=== PATIENT | female | born 1985 | race Caucasian/White ===

== ENCOUNTER → 2017-05-17 | Outpatient (CLI) | payer OTHER ==
[~2017-05-17] MED LIST: CITA10TA4 PO; EPP3/2 IM; LANS15CA6 PO; RANI300T2 PO
[2017-05-20 12:42] LABS: HERPES SIMPLEX CULT SOURCE GENITAL-VULVAR; HERPES SIMPLEX VIRUS CULT NOT ISOLATED (NOT ISOLATED)
== END | disposition home or self-care (01) ==
LOC: C.LABSPEC 14:00
PROVIDERS: ATTEND Obstetrics & Gynecology
DX: N76.0 Acute vaginitis (principal); N76.6 Ulceration of vulva

== ENCOUNTER → 2017-06-16 | Outpatient (CLI) | payer OTHER | END | disposition home or self-care (01) | LOC: C.PAPS 13:35 | PROVIDERS: ATTEND Obstetrics & Gynecology | DX: D06.9 Carcinoma in situ of cervix, unspecified (principal); Z11.51 Encounter for screening for human papillomavirus (HPV) ==

== ENCOUNTER → 2017-11-08 | Emergency (ER) | payer OTHER ==
[~2017-11-08] VITALS: Ht 166.4 cm; Wt 62.8 kg
[~2017-11-08] MED LIST changes: +DiphenhydrAMINE HCL 50 MG/ML VIAL IV STA; +KETOROLAC TROMETHAMINE 30 MG/ML VIAL IV STA; +OPTIRAY 320 IV PRN; +PROCHLORPERAZINE 5 MG/ML 2 ML VIAL IV STA; +SODIUM CHLORIDE 0.9% 1000ML 1,000 ML IV STA
[2017-11-08 00:18] VITALS: TEMP 36.8; Ht 166.4 cm; Wt 62.8 kg
[2017-11-08 02:05] LABS: ALBUMIN 3.7 gm/dl (3.4-5.0); CALCIUM 8.5 mg/dl (8.5-10.1); CREATININE 0.62 mg/dl (0.60-1.20); POTASSIUM 3.4 mmol/L (3.5-5.1)
[2017-11-08 02:08] LABS: TOTAL PROTEIN 7.1 gm/dl (6.4-8.2)
[2017-11-08 02:13] LABS: BASO % 0.3 %; BASO ABS # 0.01 K/uL (0-0.2); EOS % 0.8 %; EOS ABS # 0.03 K/uL (0-0.5); HEMATOCRIT 38.8 % (37-47); HEMOGLOBIN 13.3 g/dL (12.0-16.0); IG# 0.01 K/uL (0.00-0.02); LYMPH % 41.3 %; LYMPH ABS # 1.59 K/uL (1.2-3.4); MEAN CELL VOLUME 88.2 fL (80-100); MEAN CORPUSCULAR HEMOGLOBIN 30.2 pg (25-34); MEAN CORPUSCULAR HGB CONC 34.3 g/dl (32-36); MEAN PLATELET VOLUME 10.5 fL (7.4-10.4); MONO % 9.6 %; MONO ABS # 0.37 K/uL (0.11-0.59); NEUT % 47.7 %; NEUT ABS # 1.84 K/uL (1.4-6.5); PLATELET COUNT 171 K/uL (130-400); RED CELL DISTRIBUTION WIDTH CV 12.7 % (11.5-14.5); WHITE BLOOD COUNT 3.85 K/uL (4.8-10.8)
--- NOTE | 2017-11-08 04:34 | EMERGENCY ROOM VISIT NOTE ---
History Report prepared by Dougieibkasie: Claude Berry Under the Supervision of: Dr. Brittney Figueroa D.O. First contact with patient: 00:48 Chief Complaint: HEADACHE Stated Complaint: SEVERE HEADACHE,ESPECIALLY WHEN MOVE,RT SIDE L EYE History of Present Illness The patient is a 31 year old female who presents to the Emergency Room with complaints of waxing and waning headache beginning three days ago. The patient localizes the pain to her right forehead and behind her right eye. She has a history of headaches, but states that her pain feels different. She describes her pain as "throbbing and pounding". The patient feels that her heart beat becomes prominent in her head during her pain. Her pain is worsened with movement and positional changes. She feels that her lack of movement since arriving in the ED has improved her symptoms for the moment. The patient also complains of right lower neck "soreness" and nausea. She has taken Tylenol, which normally helps her headaches, but has seen no relief. She drank green tea today for the caffeine, and does not normally consume caffeine, but saw minimal relief. The patient denies visual changes, numbness, tingling, or vomiting. She notes that she is prone to dehydration, but has been drinking a lot of fluids recently. She has been seen for her "normal" headaches and was told that they may be migraines, but was not formally diagnosed. The patient has a family history of migraines. She has had a brain CTA two years ago which was normal. She denies recent changes to her medications, diet, or activity. Source of History: patient Onset: Three days ago Position: head (right side) Quality: other ("throbbing and pounding") Timing: waxes/wanes Modifying Factors (Worsening): movement, other (positional changes) Associated Symptoms: + neck pain ("soreness"), + nausea, No vomiting, No numbness Note: The patient denies visual changes or tingling. Review of Systems See HPI for pertinent positives & negatives. A total of 10 systems reviewed and were otherwise negative. Past Medical & Surgical Medical Problems: (1) Anxiety (2) Depression (3) GERD (gastroesophageal reflux disease) Surgical Problems: (1) Lipoma removed Family History Cancer Diabetes mellitus FHx: lung disease Hypertension Social History Smoking Status: Never Smoker Alcohol Use: none Drug Use: none Marital Status: single Housing Status: lives with family Occupation Status: employed Current/Historical Medications Scheduled Citalopram Hydrobromide (Citalopram Hydrobromide), 10 MG PO HS Lansoprazole (Prevacid), 15 MG PO QAM Scheduled PRN Epinephrine (Epipen), 0.3 MG IM UD PRN for ALLERGIC REACTION Ranitidine (Zantac), 300 MG PO DAILY PRN for Indigestion Allergies Coded Allergies: Doxycycline (Verified Allergy, Mild, GI UPSET, 11/08/17) Epinephrine (Verified Allergy, Unknown, "HEART RACES", 11/08/17) WITH LOCAL NUMBING MEDICATION Lidocaine (Verified Allergy, Unknown, "HEART RACES", 11/08/17) WITH LOCAL NUMBING MEDICATION Penicillins (Verified Allergy, Unknown, RED, HOT PATCHES ON SKIN, 06/23/16) Sulfamethoxazole w/Trimethoprim (Verified Allergy, Unknown, "SKIN FELT ON FIRE" AND HIVES, 11/08/17) Physical Exam Vital Signs Date Time Temp Pulse Resp B/P (MAP) Pulse Ox O2 Delivery O2 Flow Rate FiO2 11/08/17 04:58 73 20 114/68 98 11/08/17 04:29 69 16 113/70 100 Room Air 11/08/17 02:29 74 18 118/76 98 Room Air 11/08/17 00:18 36.8 82 20 141/89 99 Room Air Physical Exam GENERAL: alert, well appearing, well nourished, no distress, non-toxic EYE EXAM: normal conjunctiva, PERRL and EOM's grossly intact OROPHARYNX: no exudate, no erythema, lips, buccal mucosa, and tongue normal and mucous membranes are moist NECK: supple, no nuchal rigidity, no adenopathy. Mild tenderness in the right trapezius. No midline tenderness or step off. Full ROM. LUNGS: Clear to auscultation. Normal chest wall mechanics HEART: no murmurs, S1 normal and S2 normal ABDOMEN: abdomen soft, non-tender, normo-active bowel sounds, no masses, no rebound or guarding. BACK: Back is symmetrical on inspection and there is no deformity, no midline tenderness, no CVA tenderness. SKIN: no rashes and no bruising UPPER EXTREMITIES: upper extremities are grossly normal. LOWER EXTREMITIES: No pitting edema. NEURO EXAM: Normal sensorium, cranial nerves II-XII grossly intact, normal speech, no gross weakness of arms, no gross weakness of legs. Medical Decision & Procedures ER Provider Diagnostic Interpretation: CT results per statrad and my review. CT HEAD: Comparison: 03/05/2016. Stable and negative head CT. No acute intracranial abnormalities. No acute intracranial hemorrhage, transcortical infarction or mass. No acute fractures. Visualized paranasal sinuses and mastoids are clear. CTA HEAD: Comparison: 03/05/2016. Stable and negative CTA head. No acute occlusions, cerebral aneurysms or AVMs. Anterior circulation RT ICA: patent RT MCA: patent; no aneurysm RT NEIDA: patent A-comm art: patent; no aneurysm LT ICA: patent LT MCA : patent; no aneurysm LT NEIDA: patent Posterior circulation RT vert: patent LT vert: patent Basilar art: patent RT [employer]: patent RT P-comm: patent; no aneurysm LT [employer]ATOR: patent LT P-comm: patent; no aneurysm Major dural venous sinus are patent. Laboratory Results 11/08/17 01:30 Red Blood Count 4.40, Mean Corpuscular Volume 88.2, Mean Corpuscular Hemoglobin 30.2, Mean Corpuscular Hemoglobin Concent 34.3, Mean Platelet Volume 10.5, Neutrophils (%) (Auto) 47.7, Lymphocytes (%) (Auto) 41.3, Monocytes (%) (Auto) 9.6, Eosinophils (%) (Auto) 0.8, Basophils (%) (Auto) 0.3, Neutrophils # (Auto) 1.84, Lymphocytes # (Auto) 1.59, Monocytes # (Auto) 0.37, Eosinophils # (Auto) 0.03, Basophils # (Auto) 0.01 11/08/17 01:30 Test 11/08/17 01:30 White Blood Count 3.85 K/uL (4.8-10.8) Red Blood Count 4.40 M/uL (4.2-5.4) Hemoglobin 13.3 g/dL (12.0-16.0) Hematocrit 38.8 % (37-47) Mean Corpuscular Volume 88.2 fL (80-100) Mean Corpuscular Hemoglobin 30.2 pg (25-34) Mean Corpuscular Hemoglobin Concent 34.3 g/dl (32-36) Platelet Count 171 K/uL (130-400) Mean Platelet Volume 10.5 fL (7.4-10.4) Neutrophils (%) (Auto) 47.7 % Lymphocytes (%) (Auto) 41.3 % Monocytes (%) (Auto) 9.6 % Eosinophils (%) (Auto) 0.8 % Basophils (%) (Auto) 0.3 % Neutrophils # (Auto) 1.84 K/uL (1.4-6.5) Lymphocytes # (Auto) 1.59 K/uL (1.2-3.4) Monocytes # (Auto) 0.37 K/uL (0.11-0.59) Eosinophils # (Auto) 0.03 K/uL (0-0.5) Basophils # (Auto) 0.01 K/uL (0-0.2) RDW Standard Deviation 41.0 fL (36.4-46.3) RDW Coefficient of Variation 12.7 % (11.5-14.5) Immature Granulocyte % (Auto) 0.3 % Immature Granulocyte # (Auto) 0.01 K/uL (0.00-0.02) Anion Gap 6.0 mmol/L (3-11) Est Creatinine Clear Calc Drug Dose 119.6 ml/min Estimated GFR () 138.3 Estimated GFR (Non- 119.3 BUN/Creatinine Ratio 14.2 (10-20) Calcium Level 8.5 mg/dl (8.5-10.1) Magnesium Level 2.0 mg/dl (1.8-2.4) Total Bilirubin 0.7 mg/dl (0.2-1) Aspartate Amino Transf (AST/SGOT) 15 U/L (15-37) Alanine Aminotransferase (ALT/SGPT) 24 U/L (12-78) Alkaline Phosphatase 41 U/L (45-117) Total Protein 7.1 gm/dl (6.4-8.2) Albumin 3.7 gm/dl (3.4-5.0) Globulin 3.4 gm/dl (2.5-4.0) Albumin/Globulin Ratio 1.1 (0.9-2) Human Chorionic Gonadotropin, Qual NEG (NEG) Laboratory results per my review. Medications Administered Medications (Trade) Dose Ordered Sig/Girish Route Start Time Stop Time Status Last Admin Dose Admin Sodium Chloride 1,000 ml @ 999 mls/hr Q1H1M STAT IV 11/08/17 01:19 2/5/18 02:19 DC 11/08/17 01:41 999 MLS/HR Ketorolac Tromethamine (Toradol Inj) 15 mg NOW STAT IV 11/08/17 04:18 11/08/17 04:20 DC 11/08/17 04:27 15 MG Prochlorperazine Edisylate (Compazine Inj) 5 mg NOW STAT IV 11/08/17 04:18 11/08/17 04:20 DC 11/08/17 04:29 5 MG Diphenhydramine HCl (Benadryl Inj) 12.5 mg NOW STAT IV 11/08/17 04:18 11/08/17 04:20 DC 11/08/17 04:28 12.5 MG ED Course 0105: The patient was evaluated in room A11B. A complete history and physical exam was performed. 0415: I reassessed the patient. Her pain is a 5/10 currently. I updated her on her test results. 0435: Upon reevaluation, the patient is feeling better. I discussed the findings and the treatment plan with the patient. She verbalizes agreement and understanding. She was discharged home. Medical Decision Differential diagnosis: Etiologies such as migraine headache, meningitis, sinusitis, CO exposure, ICH, SAH, infection, tumor, headache, sinus thrombosis, arterial dissection, as well as others were entertained. Patient improved here, labs and imaging reassuring, vital signs stable throughout. Did not feel patient warranted LP for underlying subarachnoid hemorrhage. Doubt other vascular etiology or infectious etiology. Doubt hypertensive urgency/emergency. Doubt pseudotumor cerebri/NPH. Discussed with patient follow-up with family doctor given atypical nature of headache, symptoms to watch and return for, she verbalized understanding was agreeable with plan. Doubt other environmental exposures or etiology. Patient slightly anxious appearing at baseline. Medication Reconcilliation Current Medication List: was personally reviewed by me Blood Pressure Screening Patient's blood pressure: Normal blood pressure Blood pressure disposition: Did not require urgent referral Impression Primary Impression: Headache Scribe Attestation The scribe's documentation has been prepared under my direction and personally reviewed by me in its entirety. I confirm that the note above accurately reflects all work, treatment, procedures, and medical decision making performed by me. Departure Information Dispostion Home / Self-Care Referrals Summer Forbes D.O. (PCP) Patient Instructions My [facility] Additional Instructions Please call and follow-up with your family doctor as a precaution. Please drink plenty of fluids to stay well hydrated. If you have any worsening symptoms including increased headache, vision changes, dizziness, nausea/ vomiting, fevers, are unable to walk, worsening neck or back pain, numbness/ tingling, or you have any other concerns, please return to the emergency room. Problem Qualifiers Primary Impression: Headache Headache type: unspecified Headache chronicity pattern: acute headache Intractability: not intractable Qualified Codes: R51 - Headache
[2017-11-08 04:58] VITALS: BP 114/68; PULSE 73; O2SAT 98
--- NOTE | 2017-11-08 07:13 | DIAGNOSTIC IMAGING REPORT ---
ANGIOGRAPHY HEAD COMBO CLINICAL HISTORY: 31 years-old Female with atypical headache, neck pain, paresthesias. Acute atypical headache COMPARISON STUDY: CTA of the head 03/05/2016 TECHNIQUE: Unenhanced axial CT scan of the brain is performed. Subsequently, following the IV administration of 1:15 cc of Optiray 320, CT angiogram of the brain was performed from the skull base to the vertex. Images are reviewed in the axial, sagittal, and coronal planes. 3-D MIPS images are created and assessed. IV contrast was administered without complication. A dose lowering technique was utilized adhering to the principles of ALARA. CT DOSE: 654.54 mGy.cm FINDINGS: CT BRAIN: There is no acute intracranial hemorrhage, midline shift, hydrocephalus, intracranial mass, territorial ischemia or abnormal extra-axial collections. No abnormal intra-axial or extra-axial enhancement. Mastoid air cells and middle ear cavities are clear. No calvarial fracture. Paranasal sinuses are clear. CT ANGIOGRAM OF THE BRAIN: The imaged bilateral internal carotid arteries are patent. The bilateral anterior and middle cerebral arteries are also patent. The vertebrobasilar system and posterior cerebral arteries are widely patent. There is no aneurysm, high-grade stenosis, or proximal branch occlusion identified. Dural sinuses appear patent. IMPRESSION: 1. No acute intracranial abnormality. 2. Unremarkable CTA of the head without aneurysm, dissection, high-grade stenosis or proximal branch occlusion. The above report was generated using voice recognition software. It may contain grammatical, syntax or spelling errors. Electronically signed by: Ruiz Colmenares M.D. 11/08/2017 7:12 AM Dictated Date/Time: 11/08/2017 7:06 AM
== END | disposition home or self-care (01) ==
LOC: C.EDB 00:18
DX: R51 Headache (principal); F41.9 Anxiety disorder, unspecified; F32.9 Major depressive disorder, single episode, unspecified; K21.9 Gastro-esophageal reflux disease without esophagitis; Z80.9 Family history of malignant neoplasm, unspecified; Z83.3 Family history of diabetes mellitus; Z82.49 Family history of ischemic heart disease and other diseases of the circulatory system; Z84.1 Family history of disorders of kidney and ureter; Z79.899 Other long term (current) drug therapy

== ENCOUNTER 2025-08-25 08:52 | Observation (INO) ==
--- NOTE | 2025-08-25 09:11 | Emergency Department Note ---
History of Present Illness General Chief Complaint: Chest Pain Stated Complaint: CHEST PAIN Time Seen by Provider: 08/25/25 08:59 History of Present Illness Provider Complaint: chest pain Onset (ago): day(s) 3 Duration: intermittent Onset: during rest Pain Location: left chest Pain Radiation: LUE and neck Severity: moderate Maximum Pain Intensity: 7 Current Pain Intensity: 7 Quality: + heaviness and + sharp Relieved By: + nothing Exacerbated By: + nothing Context: no recent illness, no recent surgery, no recent immobilization, no recent travel, no trauma/injury, no new medications or no history of DVT/PE Associated symptoms: + dyspnea; no nausea, no vomiting, no palpitations, no fever, no cough or no leg swelling Home Medications Medication Instructions Recorded Confirmed Type famotidine 20 mg tablet (Pepcid AC) 20 mg PO BID PRN Acid Reflux 03/31/23 08/25/25 History polyethylene glycol 3350 17 17 g PO DAILY PRN Constipation 03/31/23 08/25/25 History gram/dose oral powder (Miralax) meclizine 25 mg tablet 25 mg PO DAILY PRN Vertigo 07/02/23 08/25/25 History naproxen sodium 220 mg tablet 220 mg PO BID PRN Migraine Headache 11/19/23 08/25/25 History (Aleve) acetaminophen 325 mg tablet 325 mg PO Q6 PRN Pain 11/22/23 08/25/25 History (Tylenol) naratriptan 2.5 mg tablet 2.5 mg PO DIRECTED PRN Migraine 01/05/24 08/25/25 History Headache tizanidine 4 mg tablet 4 mg PO HS PRN Migraine Headache 01/05/24 08/25/25 History valacyclovir 1 gram tablet 1,000 mg PO BID PRN sores #10 tabs 06/01/25 08/25/25 Rx (Valtrex) pantoprazole 40 mg tablet,delayed 40 mg PO QAM 08/25/25 08/25/25 History release propranolol 10 mg tablet 0 mg PO UD PRN Chest Pain 08/25/25 08/25/25 History Allergies Allergy/AdvReac Type Severity Reaction Status Date / Time Penicillins Allergy Intermediate RED, HOT Verified 08/25/25 10:40 PATCHES ON SKIN sulfamethoxazole Allergy Intermediate "SKIN FELT Verified 08/25/25 10:40 ON FIRE" AND HIVES trimethoprim Allergy Intermediate "SKIN FELT Verified 08/25/25 10:40 ON FIRE" AND HIVES azithromycin AdvReac Intermediate gastro Unverified 08/25/25 10:40 upset, body/muscle aches doxycycline AdvReac Intermediate GI UPSET Verified 08/25/25 10:40 epinephrine AdvReac Intermediate "HEART Verified 08/25/25 10:40 RACES" lidocaine AdvReac Intermediate "HEART Verified 08/25/25 10:40 RACES" Past Med/Surg History Problem List (Updated 08/25/25 @ 11:46 by Sundeep Walton MD) Leukopenia (Acute) Chest pain (Acute) Breast pain, left Postoperative state 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 per med list, pt on meclizine for hx of dizziness IBS (irritable bowel syndrome) follows with GI Low blood pressure occas and was told to increase salt intake at that time. 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 S/P LEEP (loop electrosurgical excision procedure) 05/19/2016 for CIN3 on colpo biopsy Lipoma removed in 2002, 2008, 2020 Family History Grandmother (Paternal) Uterine cancer Cancer Grandmother (Maternal) Breast cancer Cancer Grandmother Stroke Heart disease Father Doyle syndrome Diagnosed 2020, Blanca being tested Hypertension Grandfather (Maternal) Cancer Grandfather (Maternal) Cancer Uncle Hypertension Denies family history of Ovarian cancer Colorectal cancer Social History Smoking Status: Never smoker Second Hand Exposure: No; Do You Dip or Chew Tobacco: No; Hx Alcohol Use: No Hx Substance Use: No Preferred Language: Yi Communication Ability: Effective Mosaic Floor Layer Required: No Beliefs That Will Affect Care: None marital status: Single Current Living Situation: Family Current Living Situation Comment: lives w/ son current occupational status: unemployed How many Children do You have: 2 Feels Safe at Home: Yes during the past year weight has: increased > 10 lbs Assistive Devices: Glasses Physical Exam Vital Signs Vital Signs - 24 hr 08/25/25 08:55 08/25/25 09:11 08/25/25 09:16 Temperature 36.5 C Temperature Source Temporal Artery Scan Pulse Rate 106 H 78 Pulse Rhythm Respiratory Rate 18 21 Respiratory Effort / Characteristics Non-Labored Spontaneous Respiratory Depth Normal Respiratory Pattern Regular Blood Pressure 132/83 115/70 Blood Pressure Mean 99 78 Blood Pressure Position Sitting Pulse Oximetry 98 100 100 Oxygen Delivery Method Room Air Room Air Room Air Oxygen Flow Rate 0 Sepsis Recent Fever Within 48 Hours No Sepsis New/Unexplained Change in Mental Status N/A Sepsis Action Taken by Nursing No Action Required 08/25/25 09:17 08/25/25 09:18 08/25/25 09:30 Temperature Temperature Source Pulse Rate 66 70 81 Pulse Rhythm Regular Respiratory Rate 16 19 Respiratory Effort / Characteristics Respiratory Depth Respiratory Pattern Blood Pressure 118/63 Blood Pressure Mean 85 Blood Pressure Position Pulse Oximetry 100 99 Oxygen Delivery Method Room Air Room Air Oxygen Flow Rate Sepsis Recent Fever Within 48 Hours Sepsis New/Unexplained Change in Mental Status Sepsis Action Taken by Nursing 08/25/25 10:00 08/25/25 10:30 08/25/25 11:00 Temperature Temperature Source Pulse Rate 66 69 67 Pulse Rhythm Respiratory Rate 15 14 15 Respiratory Effort / Characteristics Respiratory Depth Respiratory Pattern Blood Pressure 102/58 L 107/61 140/83 Blood Pressure Mean 73 81 109 Blood Pressure Position Pulse Oximetry 100 99 100 Oxygen Delivery Method Room Air Room Air Room Air Oxygen Flow Rate Sepsis Recent Fever Within 48 Hours Sepsis New/Unexplained Change in Mental Status Sepsis Action Taken by Nursing Physical Exam GENERAL: oriented to person, place, and time. appears well-developed and well- nourished. HENT: Exam performed. - Head: Normocephalic and atraumatic. EYES: Conjunctivae and EOM are normal. Right eye exhibits no discharge. Left eye exhibits no discharge. No scleral icterus. Mild exophthalmos. NECK: Normal range of motion. Neck supple. No JVD present. CV: Normal rate, regular rhythm, normal heart sounds and intact distal pulses. There is no peripheral edema. Palpable radial pulses bue. PULM/CHEST: Effort normal and breath sounds normal. No respiratory distress. No stridor. no wheezes. no rales. ABD: The abdomen is soft. There is no tenderness. NEURO: Motor and sensation grossly intact. SKIN: Skin is warm and dry. He is not diaphoretic. PSYCH: normal mood and affect. Behavior is normal. Judgment and thought content normal. Course Course 0859: The patient was evaluated in room B4. A complete history and physical exam was performed Cardiac monitoring: An order was placed for continuous cardiac monitoring. The monitor shows a rate of 90 with sinus rhythm interpreted by me 1029: Vital signs stable. Labs and imaging are unremarkable. Patient be admitted for chest pain rule out ACS. [facility] hospitalist team contacted. Administered Medications Discontinued Medications Aspirin (Aspirin Chew 324 Mg) 324 mg PO NOW STA Stop: 08/25/25 09:10 Last Admin: 08/25/25 09:13 Dose: 324 mg Documented By: MAXX Medical Decision Making Laboratory Data Attestation: I reviewed the patient's lab results. 08/25/25 09:12 08/25/25 09:12 Labs: Lab Results 08/25/25 Range/Units 09:12 WBC 5.38 (4.8-10.8) K/ul RBC 4.73 (4.20-5.40) M/uL Hgb 14.6 (12.0-16.0) g/dL Hct 42.1 (37.0-47.0) % MCV 89.0 (80.0-100.0) fL MCH 30.9 (25.0-34.0) pg MCHC 34.7 (32.0-36.0) g/dL RDW Std Deviation 39.6 (36.4-46.3) fL RDW Coeff of Varinder 12.1 (11.5-14.5) % Plt Count 168 (130-400) K/uL MPV 10.7 (9.4-12.4) fL Immature Gran % (Auto) 0.2 % Neut % (Auto) 70.6 % Lymph % (Auto) 22.9 % Hopkins % (Auto) 4.8 % Eos % (Auto) 1.1 % Baso % (Auto) 0.4 % Neut # (Auto) 3.80 (1.40-6.50) K/uL Lymph # (Auto) 1.23 (1.20-3.40) K/uL Hopkins # (Auto) 0.26 (0.11-0.59) K/uL Eos # (Auto) 0.06 (0.00-0.50) K/uL Baso # (Auto) 0.02 (0.00-0.20) K/uL Immature Gran # (Auto) 0.01 (0.01-0.20) K/uL PT 11.0 (9.0-12.0) Seconds INR 1.0 (0.9-1.1) APTT 30 (21-31) Seconds PTT Ratio 1.1 Sodium 136 (136-145) mmol/L Potassium 3.8 (3.5-5.1) mmol/L Chloride 103 (98-107) mmol/L Carbon Dioxide 23 (21-32) mmol/L Anion Gap 10 (3-11) BUN 14 (6-23) mg/dl Creatinine 0.80 (0.6-1.2) mg/dl Est Cr Clr Drug Dosing 84.1 ml/min eGFR 95.46 BUN/Creatinine Ratio 17.5 (10-20) Glucose 77 (70-99(Fasting)) mg/dl Calcium 9.0 (8.6-10.3) mg/dl Troponin I High Sens 4.3 (0-14) pg/ml Lipase 19 (11-82) U/L Imaging Data Chest x-ray: Attestation: I personally reviewed and interpreted this imaging study as follows: My impression: Chest x-ray negative. Airway clear. No pneumothorax. No consolidation. No cardiomegaly or cephalization.. No free air under the diaphragm. No fractures of the skeletal structures. Radiologist's impression: Chest X-Ray 08/25/25 09:09 Technique: A frontal view of the chest was obtained Findings: There are no confluent pulmonary infiltrates. The heart size is within normal limits. No pleural effusion or pneumothorax is seen. There is no definite pulmonary nodule. No fracture is noted. No foreign body is seen Impression: No active disease Electronically signed by Victor M Lin 08-25-2025 09:54 AM ECG Data Attestation: I personally reviewed and interpreted this ECG as follows: Rate (beats per minute): 94 Rhythm: normal sinus Findings: no ST depression, no ST elevation or no prolonged QT Additional Comments: QRS 68 MDM Narrative 0859: The patient was evaluated in room B4. A complete history and physical exam was performed Cardiac monitoring: An order was placed for continuous cardiac monitoring. The monitor shows a rate of 90 with sinus rhythm interpreted by me 1029: Vital signs stable. Labs and imaging are unremarkable. Patient be admitted for chest pain rule out [facility] Impression & Plan Chest pain Discharge Plan Visit Data Chief Complaint: Chest Pain Stated Complaint: CHEST PAIN ED Provider: Sundeep Walton Discharge Problem: Chest pain Patient Disposition: Being Evaluated by Hospitalist Condition: Fair Forms Stand Alone Forms: [facility] Prescriptions Prescriptions: No Action valacyclovir [Valtrex] 1 gram tablet 1,000 mg PO BID PRN (Reason: sores) Qty: 10 3RF meclizine 25 mg Tablet 25 mg PO DAILY PRN (Reason: Vertigo) naproxen sodium [Aleve] 220 mg Tablet 220 mg PO BID PRN (Reason: Migraine Headache) acetaminophen [Tylenol] 325 mg Tablet 325 mg PO Q6 PRN (Reason: Pain) famotidine [Pepcid AC] 20 mg Tablet 20 mg PO BID PRN (Reason: Acid Reflux) Patient Comments: 08/24-per pt she's been taking BID instead of just nightly polyethylene glycol 3350 [Miralax] 17 gram/dose Powder 17 g PO DAILY PRN (Reason: Constipation) tizanidine 4 mg tablet 4 mg PO HS PRN (Reason: Migraine Headache) naratriptan 2.5 mg tablet 2.5 mg PO DIRECTED PRN (Reason: Migraine Headache) propranolol 10 mg tablet 0 mg PO UD PRN (Reason: Chest Pain) Patient Comments: 08/25-per pt she hasnt started the medication yet pantoprazole 40 mg tablet,delayed release (DR/EC) 40 mg PO QAM Referrals Referrals: Summer Forbes DO [Primary Care Provider] - Discharge Problem: Chest pain Qualifiers: Chest pain type: unspecified Qualified Code(s): R07.9 - Chest pain, unspecified
[2025-08-25] MEDS: ASPIRIN CHEW 324 MG PO STA (09:13)
[2025-08-25 09:23] LABS: Hematocrit (blood only) 42.1 % (37.0-47.0); Hemoglobin 14.6 g/dL (12.0-16.0); Immature Granulocytes # (auto) 0.01 K/uL (0.01-0.20); Immature Granulocytes % (auto) 0.2 %; Mean Corpuscular Hemoglobin 30.9 pg (25.0-34.0); Mean Corpuscular Volume 89.0 fL (80.0-100.0); Platelet Count 168 K/uL (130-400); RDW Standard Deviation 39.6 fL (36.4-46.3); Red Blood Count 4.73 M/uL (4.20-5.40); White Blood Count 5.38 K/ul (4.8-10.8)
[2025-08-25 09:42] LABS: Anion Gap 10.0 (3-11); Blood Urea Nitrogen 14.0 mg/dl (6-23); Calcium 9.0 mg/dl (8.6-10.3); Carbon Dioxide 23.0 mmol/L (21-32); Chloride 103.0 mmol/L (98-107); Creatinine Clr Calc Pharmacy 84.1 ml/min; Glucose 77.0 mg/dl (70-99(Fasting)); Lipase 19.0 U/L (11-82); Potassium 3.8 mmol/L (3.5-5.1); Sodium 136.0 mmol/L (136-145)
--- NOTE | 2025-08-25 09:54 | XRay Report ---
Technique: A frontal view of the chest was obtained Findings: There are no confluent pulmonary infiltrates. The heart size is within normal limits. No pleural effusion or pneumothorax is seen. There is no definite pulmonary nodule. No fracture is noted. No foreign body is seen Impression: No active disease Electronically signed by Victor M Lin 08-25-2025 09:54 AM
[2025-08-25 09:56] LABS: INR 1.0 (0.9-1.1); Partial Thromboplastin Time 30 Seconds (21-31); Prothrombin Time 11.0 Seconds (9.0-12.0)
--- NOTE | 2025-08-25 11:27 | History & Physical Report ---
Date of Service August 25, 2025 Assessment & Plan (1) Chest pain: Plan: Off-and-on chest pain/pressure worse for the last 3 days. As for a few minute and associated with shortness of breath and radiation to the neck and left upper extremity Has had episodes of pain few weeks back as well Chest pain could be secondary to costochondritis Initial EKG and troponin are unremarkable Will admit to med/tele and will rule out with serial cardiac enzymes and also ec ho will be done Ideally would be to get her stress test but whenever possible over the weekend If she is ruled out and no other arrhythmias noted she will be discharged likely tomorrow with cardiology follow-up sooner than later (2) PMS (premenstrual syndrome): (3) Palpitations: Plan: Complaint palpitations and that is positional especially lying on the left side Recent Zio patch of 12 days did not show any significant arrhythmias as per the patient Will monitor the patient in the hospital for any arrhythmias Recently given propranolol 10 mg but has not used it for palpitation (4) GERD (gastroesophageal reflux disease): Plan: History of GERD and has been on Protonix and Pepcid Does not have any epigastric tenderness and no nausea or vomiting at this time will continue current medications (5) Classic migraine with aura: Plan: Has been medications as needed (6) Cecilio-Danlos disease: (7) Anxiety: Plan: Recently given diazepam as needed but has not used it DVT prophylaxis SCDs and activities CODE STATUS Full History of Present Illness Chief Complaint: Chest pain for the last 3 days with occasional palpitation Primary Care Provider: Summer Forbes DO She is a 39-year-old female with significant past medical history of Cecilio- Danlos syndrome type III, gastroesophageal reflux disease, hypothyroidism, TAYLOR, premenopausal symptom and atypical migraine apparently has been complaining of chest pain off and on with and without exertion for the last 3 days. She was in the ER on of this month with chest pain and also was seen in [place] ER with chest pain recently. She was sent home from the ER on 2 occasions. She has not had any echocardiogram done for the last 1 year. She has had a Zio patch as an outpatient for 12 days that did not show any significant arrhythmias but she was told that she might tachybradycardia syndrome by the PA. Her pain is very unpredictable and when it comes it lasts for a few minute sometimes radiation of pain to her jaw and also left shoulder and left upper extremity. Associated with palpitation but denies any significant dizziness or shortness of breath associated with it. For the last 3 days she has been more uncomfortable with the chest pain/pressure and she is brought into ER by her mom. Allergies Allergy/AdvReac Type Severity Reaction Status Date / Time Penicillins Allergy Intermediate RED, HOT Verified 08/25/25 10:40 PATCHES ON SKIN sulfamethoxazole Allergy Intermediate "SKIN FELT Verified 08/25/25 10:40 ON FIRE" AND HIVES trimethoprim Allergy Intermediate "SKIN FELT Verified 08/25/25 10:40 ON FIRE" AND HIVES azithromycin AdvReac Intermediate gastro Unverified 08/25/25 10:40 upset, body/muscle aches doxycycline AdvReac Intermediate GI UPSET Verified 08/25/25 10:40 epinephrine AdvReac Intermediate "HEART Verified 08/25/25 10:40 RACES" lidocaine AdvReac Intermediate "HEART Verified 08/25/25 10:40 RACES" Home Medications Medication Instructions Recorded Confirmed Type famotidine 20 mg tablet (Pepcid AC) 20 mg PO BID PRN Acid Reflux 03/31/23 08/25/25 History polyethylene glycol 3350 17 17 g PO DAILY PRN Constipation 03/31/23 08/25/25 History gram/dose oral powder (Miralax) meclizine 25 mg tablet 25 mg PO DAILY PRN Vertigo 07/02/23 08/25/25 History naproxen sodium 220 mg tablet 220 mg PO BID PRN Migraine Headache 11/19/23 08/25/25 History (Aleve) acetaminophen 325 mg tablet 325 mg PO Q6 PRN Pain 11/22/23 08/25/25 History (Tylenol) naratriptan 2.5 mg tablet 2.5 mg PO DIRECTED PRN Migraine 01/05/24 08/25/25 History Headache tizanidine 4 mg tablet 4 mg PO HS PRN Migraine Headache 01/05/24 08/25/25 History valacyclovir 1 gram tablet 1,000 mg PO BID PRN sores #10 tabs 06/01/25 08/25/25 Rx (Valtrex) pantoprazole 40 mg tablet,delayed 40 mg PO QAM 08/25/25 08/25/25 History release propranolol 10 mg tablet 0 mg PO UD PRN Chest Pain 08/25/25 08/25/25 History Past Med/Surg History Problem List Leukopenia (Acute) Chest pain (Acute) Breast pain, left Postoperative state 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 per med list, pt on meclizine for hx of dizziness IBS (irritable bowel syndrome) follows with GI Low blood pressure occas and was told to increase salt intake at that time. 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 S/P LEEP (loop electrosurgical excision procedure) 05/19/2016 for CIN3 on colpo biopsy Lipoma removed in 2002, 2008, 2020 Family History Grandmother (Paternal) Uterine cancer Cancer Grandmother (Maternal) Breast cancer Cancer Grandmother Stroke Heart disease Father Doyle syndrome Diagnosed 2020, Blanca being tested Hypertension Grandfather (Maternal) Cancer Grandfather (Maternal) Cancer Uncle Hypertension Denies family history of Ovarian cancer Colorectal cancer Social History Smoking Status: Never smoker Second Hand Exposure: No; Do You Dip or Chew Tobacco: No; Hx Alcohol Use: No Hx Substance Use: No Preferred Language: Uzbek Communication Ability: Effective 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 Beliefs That Will Affect Care: None marital status: Single Current Living Situation: Family Current Living Situation Comment: lives w/ son current occupational status: unemployed How many Children do You have: 2 Feels Safe at Home: Yes during the past year weight has: increased > 10 lbs Assistive Devices: Glasses Review of Systems Review of Systems: All systems reviewed and unremarkable except as noted below Physical Exam Physical Exam: Lying in bed without any acute distress but looks anxious Constitutional: + ill appearing and average body habitus Eyes: PERRL, conjunctivae normal, anicteric sclerae ENMT: external ear and nose normal, oropharynx normal Neck: trachea midline, no thyromegaly Respiratory: no respiratory distress Auscultation: lungs clear to auscultation bilaterally Cardiovascular: Rate/Rhythm: regular rate and regular rhythm; not tachycardic Heart Sounds: normal S1 and normal S2; no murmur Extremities: no edema Gastrointestinal (Abdomen): Inspection/Auscultation: normal bowel sounds; abdomen not distended Percussion/Palpation: abdomen soft; abdomen nontender Musculoskeletal: No acute arthritis involving any of the joint Neurologic: normal touch/pain/proprioception and moves all extremities; no focal motor deficits Psychiatric: A+Ox3, euthymic affect Lymphatic: no cervical or axillary lymphadenopathy Results & Data Results & Data Vital Signs (Past 12 Hours) Vital Signs Temp Pulse Resp BP Pulse Ox O2 Del Method O2 Flow Rate 08/25/25 10:00 66 15 102/58 L 100 Room Air 08/25/25 09:30 81 19 118/63 99 Room Air 08/25/25 09:18 70 08/25/25 09:17 66 16 100 Room Air 08/25/25 09:16 100 Room Air 0 08/25/25 09:11 78 21 115/70 100 Room Air 08/25/25 08:55 36.5 C 106 H 18 132/83 98 Room Air Laboratory Results Short CBC 08/25/25 Range/Units 09:12 WBC 5.38 (4.8-10.8) K/ul Hgb 14.6 (12.0-16.0) g/dL Hct 42.1 (37.0-47.0) % Plt Count 168 (130-400) K/uL BMP 08/25/25 09:12 Sodium 136 Potassium 3.8 Chloride 103 Carbon Dioxide 23 BUN 14 Creatinine 0.80 Glucose 77 Calcium 9.0 Code Status & VTE Plan VTE Prophylaxis Plan VTE Prophylaxis will be ordered: Yes (1) Chest pain Chest pain type: unspecified Qualified Code(s): R07.9 - Chest pain, unspecified
--- NOTE | 2025-08-25 13:27 | XCELERA ---
[id number]
[2025-08-25] MEDS ORDERED: MECLIZINE HCL 25 MG TAB PO PRN (14:59)
[2025-08-25] MEDS ORDERED: POLYETHYLENE (MIRALAX) 17 GM PACK PO PRN (14:59)
[2025-08-25] MEDS ORDERED: ACETAMINOPHEN 325 MG TAB PO PRN (14:59)
[2025-08-25] MEDS ORDERED: NAPROXEN 250 MG TAB PO PRN (15:08)
[2025-08-26] MEDS: FAMOTIDINE 20 MG TAB PO PRN (00:05)
[2025-08-26 04:12] VITALS: RESP 16
[2025-08-26 06:51] LABS: Anion Gap 6.0 (3-11); Blood Urea Nitrogen 12.0 mg/dl (6-23); Calcium 8.6 mg/dl (8.6-10.3); Carbon Dioxide 26.0 mmol/L (21-32); Chloride 105.0 mmol/L (98-107); Creatinine Clr Calc Pharmacy 97.5 ml/min; Glucose 88.0 mg/dl (70-99(Fasting)); Magnesium 2.0 mg/dl (1.7-2.4); Potassium 4.1 mmol/L (3.5-5.1); Sodium 137.0 mmol/L (136-145)
--- NOTE | 2025-08-26 10:54 | Cardiology Consultation ---
Date of Consultation August 26, 2025 Assessment & Plan (1) Palpitations: (2) Anxiety: (3) SVT (supraventricular tachycardia): Plan Patient is a 39 year old female with Cecilio-Danlos syndrome long history of palpitations and atypical chest pain. Recent outpatient cardiac evaluation with ZIO demonstrating NSR with rare PAT. Frequent symptoms correlated with NSR/Sinus tach. No arrhythmias. Due to significant anxiety/palpitations, propranolol 10 mg recommended as needed. Patient was hesitant to try but now agreeable Since admission - HS troponin negative x2. EKG without acute changes. Echo with normal LVEF, no wall motion abnormalities. Recommend trying low dose propranolol 10 mg - patient wishes to start 1/2 tab BID while on court recording monitor. She is very anxious. Treatment of underlying anxiety would also be recommended, and propranolol may aid this as well. Previously outpatient cardiac CT was discussed for further evaluation of chest pain. She has had past stress tests that are unrevealing. Given her chronic chest pain, multiple ER visits, would consider outpatient cardiac CT as previously discussed for definitive answers and r/o cardiac etiology. No further inpatient cardiac testing warranted at this time. Case discussed with Dr. Immanuel Brown spent a total of 60 of service in preparation, delivery, and documentation of the care provided to this patient, excluding any time spent in the performance of separately billed services. Catrina Howard PA-C Department of Cardiology, [facility] This chart was completed in part utilizing Speech Voice Recognition Software. Grammatical errors, random word insertions, pronoun errors, and incomplete sentences are an occasional consequence of this system due to software limitations, ambient noise, and hardware issues. Any formal questions or concerns about the content, text, or information contained within the body of this dictation should be directly addressed to the provider for clarification. Supervising Physician Co-Signing Physician Notes Patient seen and examined. Past medical history, surgical history, social history and family history have been reviewed. The medical record and all the above studies have been reviewed. Case DW BENJA including management. Patient has had sx of palpitations since after COVID. Patient has not had anything significant to eat or drink in the past few days worrying that she wou ld vomit. Palpitations Chest Pain - atypical, reproducible on palpation and movement as per patient; NC R/O Anxiety disorder PSVT Cecilio-Danlos disease ? Long COVID agree with trial of Propranolol ECHO - normal LVEF, no sig valvular abn f/u in cardiology clinic post discharge further cardiac w/u as OP as indicated please recall if needed will sign off History of Present Illness Reason for Consultation: CP; Palpitations Requesting Physician: Vera Hospitalist Attending Physician: Dr. Gambino History of Present Illness Patient is a 39 year old female who presented to [facility] with complaints of chest pain and palpitations. She has had similar ongoing complaints for many years with outpatient work ups including ZIO monitor and echo, and past stress tests. Most recent outpatient visit in Jul 2025 with cardiology and patient prescribed propranolol 10 mg as needed for palpitations and anxiety. She admits to not trying medication as she was fearful her HR would go too low. She reports frequent bouts of palpitations, and wide range of HR's in the 60's up to 130's wiht movement. She feels "deconditioned". She notes left sided chest "ache" at rest and with activity. Since admission, EKG demonstrated NSR. Telemetry revealed NSR and Sinus tachycardia when she is walking. No current chest pain. She had recent echo yesterday which revealed normal LVEF, normal wall motion, normal echo. Outpatient ZIO demonstrated NSR with multiple triggered events correlating to NSR and sinus tach outpatient cardiac CT also discussed due to chronic chest pain, but patient had declined initially At time of consult this morning, patient resting in bed feeling well. She feels anxious and that 'something is wrong". She admits to numbness in her neck/spine and is awaiting further imaging. No current chest pain or palpitations. She would be willing to try low dose propranolol as previously recommended while she is here. History includes: 1. Palpitations secondary to increased cardiac awareness and short salvos of SVT with aberrant conduction 2. History of atypical chest pain a. Negative treadmill stress echo 04/2022 3. Orthostatic hypotension 4. Borderline mitral valve prolapse without significant MR per echo 2021, mild mitral calcificaiton per echo in 2024 - no MR 5. Cecilio-Danlos syndrome type 3 (hypermobility syndrome)- no aortic dilation per CT 2019, stable per echo 04/2022, February 2025 6. Doyle syndrome Allergies Allergy/AdvReac Type Severity Reaction Status Date / Time Penicillins Allergy Intermediate RED, HOT Verified 08/25/25 10:40 PATCHES ON SKIN sulfamethoxazole Allergy Intermediate "SKIN FELT Verified 08/25/25 10:40 ON FIRE" AND HIVES trimethoprim Allergy Intermediate "SKIN FELT Verified 08/25/25 10:40 ON FIRE" AND HIVES azithromycin AdvReac Intermediate gastro Unverified 08/25/25 10:40 upset, body/muscle aches doxycycline AdvReac Intermediate GI UPSET Verified 08/25/25 10:40 epinephrine AdvReac Intermediate "HEART Verified 08/25/25 10:40 RACES" lidocaine AdvReac Intermediate "HEART Verified 08/25/25 10:40 RACES" Home Medications Medication Instructions Recorded Confirmed Type famotidine 20 mg tablet (Pepcid AC) 20 mg PO BID PRN Acid Reflux 03/31/23 08/25/25 History polyethylene glycol 3350 17 17 g PO DAILY PRN Constipation 03/31/23 08/25/25 History gram/dose oral powder (Miralax) meclizine 25 mg tablet 25 mg PO DAILY PRN Vertigo 07/02/23 08/25/25 History naproxen sodium 220 mg tablet 220 mg PO BID PRN Migraine Headache 11/19/23 08/25/25 History (Aleve) acetaminophen 325 mg tablet 325 mg PO Q6 PRN Pain 11/22/23 08/25/25 History (Tylenol) naratriptan 2.5 mg tablet 2.5 mg PO DIRECTED PRN Migraine 01/05/24 08/25/25 History Headache tizanidine 4 mg tablet 4 mg PO HS PRN Migraine Headache 01/05/24 08/25/25 History valacyclovir 1 gram tablet 1,000 mg PO BID PRN sores #10 tabs 06/01/25 08/25/25 Rx (Valtrex) pantoprazole 40 mg tablet,delayed 40 mg PO QAM 08/25/25 08/25/25 History release propranolol 10 mg tablet 0 mg PO UD PRN Chest Pain 08/25/25 08/25/25 History Patient History Medical History Seasonal allergies Bleeds easily and bruises easily History of anesthesia reaction "takes longer to wake up" per pt; per chart review, no issues with 08/2021 surgery Hemangioma of liver monitoring Cecilio-Danlos disease type 3 (hypermobility); dx 2 yrs ago > follows with [facility] History of COVID-20 December 2020: loss of taste and smell, cough, congestion, dizzy. 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 per med list, pt on meclizine for hx of dizziness IBS (irritable bowel syndrome) follows with GI Low blood pressure occas and was told to increase salt intake at that time. 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 S/P LEEP (loop electrosurgical excision procedure) 05/19/2016 for CIN3 on colpo biopsy Lipoma removed in 2002, 2008, 2020 Family History Grandmother (Paternal) Uterine cancer Cancer Grandmother (Maternal) Breast cancer Cancer Grandmother Stroke Heart disease Father Doyle syndrome Diagnosed 2020, Blanca being tested Hypertension Grandfather (Maternal) Cancer Grandfather (Maternal) Cancer Uncle Hypertension Denies family history of Ovarian cancer Colorectal cancer Social History Smoking Status: Never smoker Second Hand Exposure: No; Do You Dip or Chew Tobacco: No; Hx Alcohol Use: No Hx Substance Use: No Preferred Language: Portuguese Communication Ability: Effective Airplane Refueler Required: No Beliefs That Will Affect Care: None marital status: Single Current Living Situation: Alone Current Living Situation Comment: lives w/ son current occupational status: unemployed How many Children do You have: 2 Feels Safe at Home: Yes during the past year weight has: increased > 10 lbs Assistive Devices: Glasses Review of Systems Review of Systems: All systems reviewed & are unremarkable except as noted in HPI & below Physical Exam Constitutional: WD/WN, vitals as above well developed and + thin; no acute distress Neck: trachea midline, no thyromegaly Respiratory: normal respiratory effort, lungs clear to auscultation Cardiovascular: RRR, no murmur, no edema Gastrointestinal (Abdomen): normal bowel sounds, soft, nontender, no hepatosplenomegaly Neurologic: PERRL, EOMI, accommodation nl, no face palsy, no dysarthria Psychiatric: A+Ox3, euthymic affect Affect: + anxious affect Results & Data Vital Signs (Past 12 Hours) Vital Signs Temp Pulse Resp BP Pulse Ox O2 Del Method 08/26/25 07:52 36.4 C L 68 16 108/69 98 Room Air 08/26/25 04:11 37 C 74 16 116/71 94 Room Air 08/25/25 23:43 36.7 C 60 18 102/66 97 Room Air Laboratory Results Cardiac Enzymes 08/25/25 08/25/25 Range/Units 15:03 20:46 Troponin I High Sens 4.6 3.3 (0-14) pg/ml Comprehensive Metabolic Panel 08/26/25 Range/Units 06:03 Sodium 137 (136-145) mmol/L Potassium 4.1 (3.5-5.1) mmol/L Chloride 105 (98-107) mmol/L Carbon Dioxide 26 (21-32) mmol/L BUN 12 (6-23) mg/dl Creatinine 0.69 (0.6-1.2) mg/dl Glucose 88 (70-99(Fasting)) mg/dl Calcium 8.6 (8.6-10.3) mg/dl Intake and Output 08/25/25 08/26/25 08/26/25 22:59 06:59 14:59 Intake Total 620 / 620 Balance 620 / 620 Intake: Oral 620 / 620 Other: Weight 65.77 kg Weight Measurement Method Built in [facility] Diagnostic Findings Telemetry reviewed: NSR and sinus tach ranging 60-70s at rest and occasionally 130's with ambulation. Possible short run of PAT EKG reviewed from admission yesterday: NSR, normal EKG no change from previous Repeat EKG reviewed from: sinus bradycardia at 56 bmp No acute findings Echo reviewed from yesterday 08/26 Normal LVEF at 60-65% normal wall motion Normal sized aortic root Echo report reviewed dated February 2025: Interpretation Summary The left ventricular cavity size is normal. The LV wall thickness is normal. The left ventricular wall motion is normal. The qualitative LV ejection fraction is 60-64% (normal). There is borderline posterior mitral leaflet prolapse. There is trace mitral regurgitation. There is no evidence of pulmonary hypertension. The aortic root and proximal ascending aorta are normal sized. Compared to prior study of January 21, 2024, there is no significant change. Medications Administered Current Inpatient Medications Acetaminophen (Acetaminophen 325 Mg Tab) 325 mg PO Q6 PRN PRN Reason: Pain Stop: 09/24/25 14:58 Famotidine (Famotidine 20 Mg Tab) 20 mg PO BID PRN PRN Reason: Acid Reflux Stop: 09/24/25 14:58 Last Admin: 08/26/25 00:05 Dose: 20 mg Meclizine HCl (Meclizine Hcl 25 Mg Tab) 25 mg PO DAILY PRN PRN Reason: Vertigo Stop: 09/24/25 14:58 Miscellaneous (Naratriptan 2.5 Mg Order Awaiting Action) 1 each N/A QS ROSANNE Stop: 09/24/25 15:59 Last Admin: 08/26/25 08:29 Dose: Not Given Naproxen (Naproxen 250 Mg Tab) 250 mg PO BID PRN PRN Reason: Migraine Headache Stop: 09/24/25 15:07 Pantoprazole Sodium (Pantoprazole 40 Mg Tab) 40 mg PO QAM ROSANNE Stop: 09/25/25 08:59 Last Admin: 08/26/25 09:26 Dose: 40 mg Polyethylene Glycol (Polyethylene (Miralax) 17 Gm Pack) 17 gm PO DAILY PRN PRN Reason: Constipation Stop: 09/24/25 14:58 Tizanidine HCl (Tizanidine Hcl 4 Mg Tablet) 4 mg PO HS PRN PRN Reason: Migraine Headache Stop: 09/24/25 14:58 PG Care Time/CCT Total # of Minutes Spent Total Time Spent with Patient: Total time spent is greater than 50% in coordination of care (as documented) at patient's floor/unit and/or counseling patient: 60 Coding Level of Care Code 18697 IN/OBS CONSULT LVL 4,60M Diagnoses Palpitations R00.2 Anxiety F41.9 SVT (supraventricular tachycardia) I47.10
[2025-08-26 11:55] VITALS: TEMP 97.9
[2025-08-26] MEDS: PROPRANOLOL HCL 10 MG TAB PO SCH (14:17)
--- NOTE | 2025-08-26 14:21 | Discharge Summary ---
Date of Service August 26, 2025 Admission HPI Per Admitting Provider She is a 39-year-old female with significant past medical history of Cecilio- Danlos syndrome type III, gastroesophageal reflux disease, hypothyroidism, TAYLOR, premenopausal symptom and atypical migraine apparently has been complaining of chest pain off and on with and without exertion for the last 3 days. She was in the ER on of this month with chest pain and also was seen in [place] ER with chest pain recently. She was sent home from the ER on 2 occasions. She has not had any echocardiogram done for the last 1 year. She has had a Zio patch as an outpatient for 12 days that did not show any significant arrhythmias but she was told that she might tachybradycardia syndrome by the PA. Her pain is very unpredictable and when it comes it lasts for a few minute sometimes radiation of pain to her jaw and also left shoulder and left upper extremity. Associated with palpitation but denies any significant dizziness or shortness of breath associated with it. For the last 3 days she has been more uncomfortable with the chest pain/pressure and she is brought into ER by her mom. Admission Exam Per Admitting Provider Physical Exam: Lying in bed without any acute distress but looks anxious Constitutional: + ill appearing and average body habitus Eyes: PERRL, conjunctivae normal, anicteric sclerae ENMT: external ear and nose normal, oropharynx normal Neck: trachea midline, no thyromegaly Respiratory: no respiratory distress Auscultation: lungs clear to auscultation bilaterally Cardiovascular: Rate/Rhythm: regular rate and regular rhythm; not tachycardic Heart Sounds: normal S1 and normal S2; no murmur Extremities: no edema Gastrointestinal (Abdomen): Inspection/Auscultation: normal bowel sounds; abdomen not distended Percussion/Palpation: abdomen soft; abdomen nontender Musculoskeletal: No acute arthritis involving any of the joint Neurologic: normal touch/pain/proprioception and moves all extremities; no focal motor deficits Psychiatric: A+Ox3, euthymic affect Lymphatic: no cervical or axillary lymphadenopathy Principal Diagnosis Chest pain Palpitations Discharge Exam Constitutional: WD/WN, vitals as above, NAD, sitting up in bed, pleasant, conversing easily Respiratory: normal respiratory effort, lungs clear to auscultation, no wheeze, rales, rhonchi. Normal insp/exp effort, no accessory muscle use Cardiovascular: RRR, no murmur, no edema Vessels: no JVD or carotid bruit Chest: normal inspection of chest Abdomen: normal bowel sounds, soft, nontender, no hepatosplenomegaly Musculoskeletal: no cyanosis or clubbing, extremities motor strength 5/5 Skin: no rashes, warm and dry normal turgor Neurologic: PERRL, EOMI, accommodation nl, no face palsy, no dysarthria CN's II- XI intact bilaterally and moves all extremities Psychiatric: A+Ox3, euthymic affect Discharge Data Allergies Allergy/AdvReac Type Severity Reaction Status Date / Time Penicillins Allergy Intermediate RED, HOT Verified 08/25/25 10:40 PATCHES ON SKIN sulfamethoxazole Allergy Intermediate "SKIN FELT Verified 08/25/25 10:40 ON FIRE" AND HIVES trimethoprim Allergy Intermediate "SKIN FELT Verified 08/25/25 10:40 ON FIRE" AND HIVES azithromycin AdvReac Intermediate gastro Unverified 08/25/25 10:40 upset, body/muscle aches doxycycline AdvReac Intermediate GI UPSET Verified 08/25/25 10:40 epinephrine AdvReac Intermediate "HEART Verified 08/25/25 10:40 RACES" lidocaine AdvReac Intermediate "HEART Verified 08/25/25 10:40 RACES" Consultations 08/25/25 10:28 ED Decision to Admit Stat 08/26/25 07:58 Consult Cardiology Routine Hospital Course (1) Chest pain: (2) PMS (premenstrual syndrome): (3) Palpitations: (4) GERD (gastroesophageal reflux disease): (5) Classic migraine with aura: (6) Cecilio-Danlos disease: (7) Anxiety: Patient presents with chest pain/pressure since last several days; associated with shortness of breath at times. High sensitive troponin was negative Echocardiogram showed normal EF Telemetry did not show any arrhythmia, pauses. Cardiology was consulted for comanagement; they recommended that patient to start taking propranolol 5 mg twice a day. Patient was discharged home with instructions to follow-up with PCP Please note the above document was generated using voice recognition software. It may contain grammatical, syntax or spelling errors. Any formal questions or concerns about the content, text or information contained within the body of th is dictation should be directly addressed to the provider for clarification Total Time Total Time Spent Total Time Spent (In Minutes): 45 Total Time Includes: Examination of the Patient, Discharge Planning, Medication Reconciliation, Communication With Other Providers and Other Discharge Plan Discharge Items Patient Disposition: Home - Self-Care Reason For Visit: CHEST PSIN, PALPITATION Discharge Diagnosis: Chest pain Palpitations Condition on Discharge: Fair Activity: Resume your previous activity Non-emergency contact: Primary Care Provider Call non-emergency contact if: you have any medication questions and your symptoms worsen Follow-up/Referrals: Summer Forbes DO [Primary Care Provider] - Diet: Regular Addtl Attending Provider Instructions: You were admitted to the hospital due to chest pain/palpitation. You underwent echocardiogram which showed normal heart function. You were evaluated by cardiology; they recommend that they start taking propranolol 5 mg twice a day. Please do not take it at night as it can cause sleep disturbances. An appointment will be set up with your primary care doctor for follow-up Pending Studies at Discharge: No Stand-Alone Forms: My [facility], Smoking Cessation Medications and DC Order Prescriptions: Continued valacyclovir [Valtrex] 1 gram tablet 1,000 mg PO BID PRN (Reason: sores) Qty: 10 3RF meclizine 25 mg Tablet 25 mg PO DAILY PRN (Reason: Vertigo) naproxen sodium [Aleve] 220 mg Tablet 220 mg PO BID PRN (Reason: Migraine Headache) acetaminophen [Tylenol] 325 mg Tablet 325 mg PO Q6 PRN (Reason: Pain) famotidine [Pepcid AC] 20 mg Tablet 20 mg PO BID PRN (Reason: Acid Reflux) Patient Comments: 08/24-per pt she's been taking BID instead of just nightly polyethylene glycol 3350 [Miralax] 17 gram/dose Powder 17 g PO DAILY PRN (Reason: Constipation) tizanidine 4 mg tablet 4 mg PO HS PRN (Reason: Migraine Headache) naratriptan 2.5 mg tablet 2.5 mg PO DIRECTED PRN (Reason: Migraine Headache) pantoprazole 40 mg tablet,delayed release (DR/EC) 40 mg PO QAM Changed propranolol 10 mg tablet 5 mg PO BID Qty: 0 0RF Patient Comments: 08/25-per pt she hasnt started the medication yet Discharge Orders: Discharge Order (Routine); Ordered 08/26/25 Ordered By: Russell Amador Admission Data Admit Date/Time: 08/25/25 11:13 Attending Provider: Russell Amador Admit Provider: Terri Wright Primary Care Provider: Summer Forbes Other Providers: Terri Wright; Raheem Gambino Other Interventions: Discharge Summary Assessment (RN) Last Done: 08/26/25 18:02
[2025-08-26 15:45] VITALS: BP 96/65; PULSE 68; O2SAT 97
--- NOTE | 2025-08-26 19:42 | Electrocardiogram Report ---
Test Reason : Blood Pressure : */* mmHG Vent. Rate : 94 BPM Atrial Rate : 94 BPM P-R Int : 164 ms QRS Dur : 68 ms QT Int : 338 ms P-R-T Axes : 83 62 20 degrees QTcB Int : 422 ms Normal sinus rhythm Normal ECG When compared with ECG of 13-Aug-2025 10:24, Nonspecific T wave abnormality now evident in Inferior leads Confirmed by Leatha Torrez (Delphine) on 08/26/2025 7:41:53 PM Referred By: Confirmed By: Leatha Torrez
--- NOTE | 2025-08-26 20:10 | Electrocardiogram Report ---
Test Reason : Blood Pressure : */* mmHG Vent. Rate : 56 BPM Atrial Rate : 56 BPM P-R Int : 188 ms QRS Dur : 74 ms QT Int : 424 ms P-R-T Axes : 74 48 48 degrees QTcB Int : 409 ms Sinus bradycardia Otherwise normal ECG When compared with ECG of 25-Aug-2025 09:04, (unconfirmed) Vent. rate has decreased by 38 bpm Non-specific change in ST segment in Inferior leads Nonspecific T wave abnormality no longer evident in Inferior leads Confirmed by Leatha Torrez (Delphine) on 08/26/2025 8:10:20 PM Referred By: REFERRED SELF Confirmed By: Leatha Torrez
== END 2025-08-26 19:29 | disposition home or self-care (01) | DRG 309 ==
LOC: ED 08:52 → SUATTDRO 11:13 → 2N 11:13 → INTOOBSV 11:13 → 2N 14:32